=== PATIENT | male | born 1980 | race African-American/Black ===

== ENCOUNTER 2018-01-07 14:06 | Inpatient (IN) | payer MEDICARE ==
[2018-01-07] VITALS (38 sets, daily range): BP systolic 122–186; BP diastolic 72–121; BMI 27.1
[~2018-01-07] VITALS: Ht 180.3 cm; Wt 78.0 kg
--- NOTE | ~2018-01-07 | MORECARE ---
CASE MANAGEMENT DISCHARGE SUMMARY PATIENT: DANIEL GRACE UNIT: [id number] ADM DATE: 01/07/18 AGE: 38 : 78 SEX: M ROOM/BED: D.1210 AUTHOR: LIANA PADRON PHYSICIAN: REFERRING PHYSICIAN: GEORGE LOCKHART MD DATE OF SERVICE: 01/11/18 Discharge Plan Patient Name: DANIEL GRACE Facility: [facility]:[place] : 1980 Planned Disposition: Home or Self Care Anticipated Discharge Date: 01/10/18 Discharge Date: 01/10/2018 Expected LOS: 3 Initial Reviewer: [id number] Initial Review Date: 01/10/2018 Generated: 01/11/18 2:08 pm Comments DCP- Discharge Planning Updated by [email or web address]: Sherine Mills on 01/10/18 1:[address] Patient Name: DANIEL GRACE Admission Status: Elective Accout number: [id number] Admission Date: 01-07-2018 : 1980 Admission Diagnosis: Attending: GEORGE LOCKHART Current LOS: 3 Anticipated DC Date: 01-10-2018 Planned Disposition: Home or Self Care Primary Insurance: MEDICARE A & B Discharge Planning Comments: CM MET WITH PATIENT VARGAS PRIOR TO DISCHARGE PATIENT DEINES ANY NEEDS. IMM EXPLAINED AND SERVED @ 1440 CM WILL CONTINUE TO FOLLOW AND ASSIST NEEDED WITH DISCHARGE PLANNING / NEEDS. Supervisor Throwing Department: Sherine Mills DCPIA - Discharge Planning Initial Assessment Updated by [email or web address]: Sherine Mills on 01/10/18 2:54 pm * Is the patient Alert and Oriented? Yes * How many steps to enter\exit or inside your home? Coverage Notice Reviewer: [email or web address] - Sherine Mills Notice Issued Date-Time: 01/10/2018 14:40 Notice Type: IM Discharge Notice Notice Delivered To: Patient Relationship to Patient: Self Fire Prevention Specialist Name: Delivery Method: HAND - Hand Delivered Lizzy Days: Prior Verbal Notification: Recipient Understood Notice: Yes Recipient Signature: Yes Med Rec Note Co-signed by Attending: Coverage Notice Comment: Last DP export: 01/10/18 1:58 Patient Name: DANIEL GRACE Page 67341 at 1308 All edits/amendments must be made on the electronic document DICTATION DATE: 01/11/181307 SORTER UPHOLSTERY PARTS: CHRISTIAN 01/11/18 1308 RPT#: [id number] DC DATE:01/10/18 STATUS: DIS IN [facility] [address] [place] [address] END OF REPORT
--- NOTE | ~2018-01-07 | MORECARE ---
CASE MANAGEMENT DISCHARGE SUMMARY PATIENT: DANIEL GRACE UNIT: [id number] ADM DATE: 01/07/18 AGE: 37 : 78 SEX: M ROOM/BED: D.1210 AUTHOR: LIANA PADRON PHYSICIAN: REFERRING PHYSICIAN: GEORGE LOCKHART MD DATE OF SERVICE: 01/10/18 Discharge Plan Patient Name: DANIEL GRACE Facility: [facility]:[place] : 1980 Planned Disposition: Home or Self Care Anticipated Discharge Date: 01/10/18 Discharge Date: Expected LOS: 3 Initial Reviewer: [email or web address] Initial Review Date: 01/10/2018 Generated: 01/10/18 3:58 pm Comments DCP- Discharge Planning Updated by [email or web address]: Sherine Mills on 01/10/18 1:[address] Patient Name: DANIEL GRACE Admission Status: Elective Accout number: [id number] Admission Date: 01-07-2018 : 1980 Admission Diagnosis: Attending: GEORGE LOCKHART Current LOS: 3 Anticipated DC Date: 01-10-2018 Planned Disposition: Home or Self Care Primary Insurance: MEDICARE A & B Discharge Planning Comments: CM MET WITH PATIENT VARGAS PRIOR TO DISCHARGE PATIENT DEINES ANY NEEDS. IMM EXPLAINED AND SERVED @ 1440 CM WILL CONTINUE TO FOLLOW AND ASSIST NEEDED WITH DISCHARGE PLANNING / NEEDS. Student Union Consultant: Sherine Mills DCPIA - Discharge Planning Initial Assessment Updated by [email or web address]: Sherine Mills on 01/10/18 2:54 pm * Is the patient Alert and Oriented? Yes * How many steps to enter\exit or inside your home? Coverage Notice Reviewer: [email or web address] - Sherine Mills Notice Issued Date-Time: 01/10/2018 14:40 Notice Type: IM Discharge Notice Notice Delivered To: Patient Relationship to Patient: Self Throw Out Clerk Name: Delivery Method: HAND - Hand Delivered Lizzy Days: Prior Verbal Notification: Recipient Understood Notice: Yes Recipient Signature: Yes Med Rec Note Co-signed by Attending: Coverage Notice Comment: Patient Name: DANIEL GRACE Page 13441 at 1458 All edits/amendments must be made on the electronic document DICTATION DATE: 01/10/181457 CORRECTIONAL OFFICER LIEUTENANT: CHRISTIAN 01/10/181457 RPT#: [id number] DC DATE: STATUS: ADM IN [facility] [address] [place] [address] END OF REPORT
--- NOTE | ~2018-01-07 | DS ---
PATIENT:DANIEL GRACE :[birth year] MEDICAL RECORD: [id number] DISCHARGE SUMMARY ADMISSION DATE: 01/07/18 DISCHARGE DATE: 01/10/18 HISTORY OF PRESENT ILLNESS: Mr. Grace is a 37-year-old black male with end-stage renal disease due to hypertension and chronic drug abuse and poor dialysis and medication compliance. He has severe accelerated hypertension when he does not take his medicines, recurrent admissions for accelerated hypertension. In the dialysis unit, on Wednesday prior to admission with accelerated hypertension after not having taken his medications, apparently his systolic pressure was 270, transferred to the [facility] and then transferred here. HOSPITAL COURSE: The patient's drug screen is pending. He underwent emergent dialysis without difficulty. His home meds were resumed as well as his antihypertensives and his blood pressure came promptly under control at the time of discharge, he was back to baseline with an IJ catheter that will be removed. Dialysis fistula is intact. DISCHARGE DIAGNOSES: 1. Accelerated hypertension due to medication noncompliance. 2. End-stage renal disease with dialysis noncompliance. 3. Severe hypertension. 4. End-stage renal disease. 5. Chronic drug abuse. 6. Poor compliance. 7. Chronic anemia. PLAN: The patient will be discharged today. We will remove his left IJ catheter. He will be discharged after dialysis. He will be in [facility] on Wednesday. He will continue his renal diet, ambulation as tolerated. DISCHARGE MEDICATIONS: Will be nifedipine 90 mg daily, Renvela 800 t.i.d., clonidine 0.2 q.8 hours. He will be on labetalol 200 b.i.d., lisinopril 20 b.i.d., amlodipine 10 mg daily. TRANSINT:[id number] Voice Confirmation ID: [id number] DOCUMENT ID: [id number] CC: [facility] ALE ESCAMILLA MD at 0631 CC: [id number] DICTATION DATE: 01/10/18622 JUKE BOX SERVICER: 01/10/18 1000 DIS IN 01/10/18 [facility] [address] [place] [address]
[~2018-01-07 14:06] MED LIST: ADALAT CC90 MG PO; CATAPRES0.2 MG PO; COREG25 MG PO; METOPROLOL TAR100 M1 PO; NORVASC10 MG PO; PRINIVIL20 MG; PRINIVIL20 MG PO; PROAIR HFA8.5 GM INH; RENVELA800 MG PO
[2018-01-08] VITALS (63 sets, daily range): BP systolic 124–164; BP diastolic 75–105; Ht 180.3 cm; Wt 78.0 kg
[2018-01-08 03:16] LABS: BASOPHILS 0.3 % (0-2); EOSINOPHILS 0.1 % (0-7); HEMATOCRIT 27.7 % (42.0-54.0); HEMOGLOBIN 8.9 g/dL (13.5-17.5); IMMATURE GRANULOCYTES 0.1 % (0-5); LYMPHOCYTES 7.2 % (15-50); MCH 29.9 pg (26.0-34.0); MCHC 32.1 g/dL (31.0-37.0); MEAN PLATELET VOLUME 11.4 fL (7.4-10.4); MONOCYTES 6.7 % (2-11); NEUTROPHILS 85.6 % (40-80); RBC 2.98 10x6/uL (4.20-6.10); RDW 14.3 % (11.5-14.5); WBC 7.2 10x3/uL (4.8-10.8)
[2018-01-08 03:18] LABS: PLATELET COUNT 140 10x3/uL (130-400)
[2018-01-08 03:28] LABS: ANION GAP 18.5 mmol/L (8-16); CALCIUM 8.5 mg/dL (8.5-10.1); CARBON DIOXIDE 24.1 mmol/L (21.0-32.0); CREATININE - SERUM 18.6 mg/dL (0.6-1.3); POTASSIUM - SERUM 4.6 mmol/L (3.5-5.1)
[2018-01-09] VITALS (16 sets, daily range): BP systolic 131–159; BP diastolic 87–108
[2018-01-09 03:41] LABS: BASOPHILS 0.4 % (0-2); EOSINOPHILS 1.7 % (0-7); HEMATOCRIT 28.2 % (42.0-54.0); HEMOGLOBIN 9.1 g/dL (13.5-17.5); LYMPHOCYTES 15.3 % (15-50); MCH 30.2 pg (26.0-34.0); MCHC 32.3 g/dL (31.0-37.0); MCV 93.7 fL (80.0-100.0); MEAN PLATELET VOLUME 11.4 fL (7.4-10.4); NEUTROPHILS 73.6 % (40-80); PLATELET COUNT 147 10x3/uL (130-400); RBC 3.01 10x6/uL (4.20-6.10); RDW 14.2 % (11.5-14.5); WBC 5.4 10x3/uL (4.8-10.8)
[2018-01-09 03:43] LABS: ANION GAP 16.3 mmol/L (8-16); CALCIUM 8.5 mg/dL (8.5-10.1); CARBON DIOXIDE 27.7 mmol/L (21.0-32.0)
[2018-01-09 03:44] LABS: CREATININE - SERUM 13.4 mg/dL (0.6-1.3)
[2018-01-10 03:57] VITALS: BP 132/85
[2018-01-10 06:19] LABS: EOSINOPHILS 4.1 % (0-7); HEMOGLOBIN 9.4 g/dL (13.5-17.5); IMMATURE GRANULOCYTES 0.2 % (0-5); MCH 30.2 pg (26.0-34.0); MCHC 32.4 g/dL (31.0-37.0); MCV 93.2 fL (80.0-100.0); MEAN PLATELET VOLUME 12.5 fL (7.4-10.4); MONOCYTES 11.6 % (2-11); NEUTROPHILS 63.1 % (40-80); RBC 3.11 10x6/uL (4.20-6.10); RDW 14.1 % (11.5-14.5); WBC 4.1 10x3/uL (4.8-10.8)
[2018-01-10 06:21] LABS: PLATELET COUNT 194 10x3/uL (130-400)
[2018-01-10 06:34] LABS: ANION GAP 16.9 mmol/L (8-16); CALCIUM 7.9 mg/dL (8.5-10.1); CARBON DIOXIDE 26.3 mmol/L (21.0-32.0); CREATININE - SERUM 15.7 mg/dL (0.6-1.3); POTASSIUM - SERUM 4.2 mmol/L (3.5-5.1)
[2018-01-10 07:32] VITALS: BP 152/98
[2018-01-10] MEDS ORDERED: NORMODYNE / TR200 MG PO (10:12)
== END 2018-01-10 15:15 | disposition home or self-care (01) | DRG 304 ==
LOC: D.M2 14:06 → D.M3 14:50 → D.ICU 14:50 → D.M3 01-09 18:14
PROVIDERS: Internal Medicine Nephrology
PROC: 5A1D70Z Performance of Urinary Filtration, Intermittent, Less than 6 Hours Per Day (ICD-10-PCS; principal; 2018-01-07)
DX: I16.9 Hypertensive crisis, unspecified (principal); N18.6 End stage renal disease; I12.0 Hypertensive chronic kidney disease with stage 5 chronic kidney disease or end stage renal disease; Z99.2 Dependence on renal dialysis; Z91.15 Patient's noncompliance with renal dialysis; F14.10 Cocaine abuse, uncomplicated; J44.9 Chronic obstructive pulmonary disease, unspecified; D64.9 Anemia, unspecified; Z91.14 Patient's other noncompliance with medication regimen; F32.9 Major depressive disorder, single episode, unspecified; Z72.0 Tobacco use

== ENCOUNTER 2018-01-21 12:50 | Inpatient (IN) | payer MEDICARE ==
[~2018-01-21] VITALS: Ht 180.3 cm; Wt 81.7 kg
[2018-01-21] VITALS (28 sets, daily range): BP systolic 138–233; BP diastolic 78–147; BMI 26.0
--- NOTE | ~2018-01-21 | MORECARE ---
CASE MANAGEMENT DISCHARGE SUMMARY PATIENT: DANIEL GRACE UNIT: [id number] ADM DATE: 01/21/18 AGE: 38 : 78 SEX: M ROOM/BED: D.2134 AUTHOR: LIANA PADRON PHYSICIAN: REFERRING PHYSICIAN: LUBA HSIHE MD DATE OF SERVICE: 01/24/18 Discharge Plan Patient Name: DANIEL GRACE Facility: [facility]:[place] : 1980 Planned Disposition: Home Anticipated Discharge Date: 01/23/18 Discharge Date: 01/23/2018 Expected LOS: 2 Initial Reviewer: [email or web address] Initial Review Date: 01/24/2018 Generated: 01/24/18 9:18 am Patient Name: DANIEL GRACE Page 81944 at 0818 All edits/amendments must be made on the electronic document DICTATION DATE: 01/24/18816 CREDIT VERIFICATION CLERK: CHRISTIAN 01/24/18816 RPT#: [id number] DC DATE:01/23/18 STATUS: DIS IN [facility] [address] [place] [address] END OF REPORT
[~2018-01-21 12:50] MED LIST changes: +NORMODYNE / TR200 MG PO
[2018-01-21 13:17] LABS: BASOPHILS 0.1 % (0-2); EOSINOPHILS 2.1 % (0-7); HEMATOCRIT 27.2 % (42.0-54.0); HEMOGLOBIN 8.6 g/dL (13.5-17.5); IMMATURE GRANULOCYTES 0.1 % (0-5); LYMPHOCYTES 7.3 % (15-50); MCH 30.2 pg (26.0-34.0); MCHC 31.6 g/dL (31.0-37.0); MCV 95.4 fL (80.0-100.0); MEAN PLATELET VOLUME 11.1 fL (7.4-10.4); MONOCYTES 3.4 % (2-11); RBC 2.85 10x6/uL (4.20-6.10); RDW 14.3 % (11.5-14.5); WBC 7.7 10x3/uL (4.8-10.8)
[2018-01-21 13:25] LABS: PLATELET COUNT 241 10x3/uL (130-400)
[2018-01-21 13:38] LABS: ALBUMIN 3.2 g/dL (3.4-5.0); ANION GAP 21.8 mmol/L (8-16); BILIRUBIN - TOTAL 0.86 mg/dL (0.2-1.3); CALCIUM 8.2 mg/dL (8.5-10.1); CARBON DIOXIDE 21.6 mmol/L (21.0-32.0); CREATININE - SERUM 16.4 mg/dL (0.6-1.3); POTASSIUM - SERUM 5.4 mmol/L (3.5-5.1); PROTEIN - SERUM 7.2 g/dL (6.4-8.2)
[2018-01-21 13:54] LABS: MAGNESIUM - SERUM 2.8 mg/dL (1.8-2.4); THYROID STIMULATING HORMONE 1.26 uIU/mL (0.36-3.74)
[2018-01-21 13:59] LABS: TROPONIN-I 0.116 ng/mL (0.000-0.060)
[2018-01-22] VITALS (13 sets, daily range): BP systolic 131–160; BP diastolic 80–102; Ht 180.3 cm; Wt 81.7 kg
[2018-01-22 03:47] LABS: BASOPHILS 0.4 % (0-2); EOSINOPHILS 3.5 % (0-7); HEMOGLOBIN 8.2 g/dL (13.5-17.5); LYMPHOCYTES 10.5 % (15-50); MCH 29.9 pg (26.0-34.0); MCHC 31.5 g/dL (31.0-37.0); MCV 94.9 fL (80.0-100.0); MEAN PLATELET VOLUME 10.5 fL (7.4-10.4); MONOCYTES 9.9 % (2-11); NEUTROPHILS 75.7 % (40-80); PLATELET COUNT 214 10x3/uL (130-400); RBC 2.74 10x6/uL (4.20-6.10); RDW 14.3 % (11.5-14.5)
[2018-01-22 03:57] LABS: WBC 5.2 10x3/uL (4.8-10.8)
[2018-01-22 04:01] LABS: ANION GAP 15.5 mmol/L (8-16); CALCIUM 7.9 mg/dL (8.5-10.1); CARBON DIOXIDE 25.6 mmol/L (21.0-32.0); POTASSIUM - SERUM 5.1 mmol/L (3.5-5.1)
[2018-01-23 01:15] VITALS: BP 122/75
[2018-01-23 04:30] VITALS: BP 142/88
[2018-01-23 08:26] VITALS: BP 136/81
[2018-01-23] MEDS ORDERED: ADALAT CC90 MG PO (09:48)
[2018-01-23] MEDS ORDERED: NORMODYNE / TR200 MG PO (09:48)
[2018-01-23] MEDS ORDERED: CATAPRES0.2 MG PO (09:48)
[2018-01-23] MEDS ORDERED: NORVASC10 MG PO (09:48)
[2018-01-23] MEDS ORDERED: PRINIVIL20 MG PO (09:48)
[2018-01-23] MEDS ORDERED: HYDRALAZINE HCL25 MG PO (09:50)
== END 2018-01-23 13:33 | disposition home or self-care (01) | DRG 640 ==
LOC: D.ER 12:50 → D.ICU 14:49 → D.M2 01-22 13:48
PROVIDERS: Emergency Medicine
PROC: 5A1D70Z Performance of Urinary Filtration, Intermittent, Less than 6 Hours Per Day (ICD-10-PCS; principal; 2018-01-21)
DX: E87.70 Fluid overload, unspecified (principal); N18.6 End stage renal disease; I12.0 Hypertensive chronic kidney disease with stage 5 chronic kidney disease or end stage renal disease; I16.1 Hypertensive emergency; E87.5 Hyperkalemia; Z99.2 Dependence on renal dialysis; Z91.15 Patient's noncompliance with renal dialysis; J44.9 Chronic obstructive pulmonary disease, unspecified; F32.9 Major depressive disorder, single episode, unspecified; D63.1 Anemia in chronic kidney disease; Z72.0 Tobacco use

== ENCOUNTER 2018-02-02 00:18 | Inpatient (IN) | payer MEDICARE ==
[2018-02-02] VITALS (74 sets, daily range): BP systolic 127–237; BP diastolic 54–139; Ht 180.3 cm; Wt 88.2 kg
[~2018-02-02] VITALS: Ht 180.3 cm; Wt 88.2 kg
--- NOTE | ~2018-02-02 | MORECARE ---
CASE MANAGEMENT DISCHARGE SUMMARY PATIENT: DANIEL GRACE UNIT: [id number] ADM DATE: 02/02/18 AGE: 38 : 78 SEX: M ROOM/BED: D.08 AUTHOR: VITO,DOC PHYSICIAN: REFERRING PHYSICIAN: GEORGE LOCKHART MD DATE OF SERVICE: 02/03/18 Discharge Plan Patient Name: DANIEL GRACE Facility: [facility]:[place] : 1980 Planned Disposition: Home Anticipated Discharge Date: Discharge Date: Expected LOS: Initial Reviewer: [email or web address] Initial Review Date: 02/03/2018 Generated: 02/03/18 6:17 pm Comments DCP- Discharge Planning Updated by [email or web address]: Sherine Mills on 02/03/18 4:[address] Patient Name: DANIEL GRACE Admission Status: ER Accout number: [id number] Admission Date: 02-02-2018 : 1980 Admission Diagnosis: Attending: GEORGE LOCKHART Current LOS: 1 Anticipated DC Date: Planned Disposition: Home Primary Insurance: MEDICARE A & B Discharge Planning Comments: CM MET WITH PATIENT AT BEDSIDE. PATIENT STATED HE PLANS TO RETURN TO HIS HOME AFTER DISCHARGE WITH HIS FAMILY. HE STATES THAT HE CAN'T GET HIS MEDICATIONS OR TRANSPORTATION TO DIALYSIS SINCE HIS MEDICAID DROPPED. HE STATED THAT THEY TOLD HIM THAT HE MADE TO [employer] MONE[employer] FOR MEDICAID. HE STATES HIS DISABILITY CHECK IS 700.00 MONTHLY. HE ALSO STATES THAT HE WORKS AT [employer] TO SUPPLEMENT HIS INCOME. CM SPOKE WITH SAÚL DENNEY WITH [employer] TO SEE IF SHE HAD ANY SUGGESTIONS. SAÚL LOOKED AT HIS RECORDS AND STATED WITH HIS INCOME AT [employer] PUT HIM OVER THE LIMIT FOR MEDICAID. CM WILL CONTACT MUD JACK NOZZLEMAN AT DIALYSIS TO SEE IF SHE HAS ANY RADIO TALK SHOW HOST PROGRAMS AVAILABLE FOR PATIENTS MEDICATIONS AND TRANSPORTATION. CM WILL CONTINUE TO FOLLOW AND ASSIST NEEDED WITH DISCHARGE PLANNING / NEEDS. Act Tutor: Sherine Mills DCPIA - Discharge Planning Initial Assessment Updated by [email or web address]: Sherine Mills on 02/03/18 4:56 pm * Is the patient Alert and Oriented? Yes * How many steps to enter\exit or inside your home? * PCP DR. ESCAMILLA * Pharmacy [facility] * Preadmission Environment Home with Family * ADLs Independent * Equipment None * List name and contact numbers for known caregivers / representatives who currently or will assist patient after discharge: ARELY BRAVO - [phone] OR [phone] * Verbal permission to speak to the caregivers and representatives has been obtained from the patient. N/A * Community resources currently utilized None * Additional services required to return to the preadmission environment? No * Can the patient safely return to the preadmission environment? Yes * Has this patient been hospitalized within the prior 30 days at any hospital? No Last DP export: 02/03/18 4:01 Patient Name: DANIEL GRACE Page 67755 at 1717 All edits/amendments must be made on the electronic document DICTATION DATE: 02/03/181716 AIRBORNE WE[employer] TECHNICAL MANAGER: CHRISTIAN 02/03/181716 RPT#: [id number] DC DATE: STATUS: ADM IN [facility] [address] [place] [address] END OF REPORT
--- NOTE | ~2018-02-02 | MORECARE ---
CASE MANAGEMENT DISCHARGE SUMMARY PATIENT: DANIEL GRACE UNIT: [id number] ADM DATE: 02/02/18 AGE: 38 : 78 SEX: M ROOM/BED: D.2718 AUTHOR: VITO,DOC PHYSICIAN: REFERRING PHYSICIAN: GEORGE LOCKHART MD DATE OF SERVICE: 02/04/18 Discharge Plan Patient Name: DANIEL GRACE Facility: [facility]:[place] : 1980 Planned Disposition: Home Anticipated Discharge Date: 02/04/18 Discharge Date: 02/04/2018 Expected LOS: 2 Initial Reviewer: [email or web address] Initial Review Date: 02/03/2018 Generated: 02/04/18 6:30 pm Comments DCP- Discharge Planning Updated by [email or web address]: Jovani Nieves on 02/04/18 4:[address] Patient Name: DANIEL GRACE Encounter No: [id number] : 1980 Primary Insurance: MEDICARE A & B Anticipated DC Date: 02-04-2018 Planned Disposition: Home DCP follow-up note: CM MET WITH PT IN ROOM TO DISCUSS DISCHARGE NEEDS AND PLANNING. CM DISCUSSED AVAILABILITY OF HOME HEALTH, REHAB SERVICES AND MEDICAL EQUIPMENT. PT DENIES DISCHARGE NEEDS. PT REPORTS A [employer] FRIEND WILL TRANSPORT HOME AT DISCHARGE. IMPORTANT MESSAGE FROM MEDICARE PROVIDED AND EXPLAINED. CM DISCUSSED PERSONAL SUPPORT SYSTEM AND MEDICATION ASSISTANCE THROUGH [employer]. PT REPORTS HE BELIEVES HIS [employer]ISM WILL ASSIST WITH ANY NEEDED MEDICATIONS, PT IS USING THE [employer] $4 LIST MUCH POSSIBLE. PT RECEIVES $700 MONTH DISABILITY PAYMENT. 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 PT USUALLY ASKS FOR FRIENDS TO HELP GET HIM TO DIALYSIS. PT HAS CHECKED WITH DEPARTMENT OF HUMAN SERVICES TO REINSTATE MEDICAID, BUT HE NEEDS TO FILL OUT "SOME FORM" AND HAS NOT DONE SO. CM ENCOURAGED PT TO FOLLOW UP WITH DEPARTMENT OF HUMAN SERVICES IN [facility] AND TO ALSO ASK WHAT THE INCOME LIMIT IS AN ADJUST HIS HOURS AT [place] IF NEEDED, SO THAT HE CAN GET MEDICAID AGAIN PT IS RELYING ON MEDICAID FOR MEDICAL TRANSPORT AND MEDICATIONS, BOTH OF WHICH ARE REQUIRED TO KEEP PT ALIVE. CM REASONED WITH PT THAT IF PT DOES NOT TAKE CARE OF HIMSELF, HE IS NOT GOING TO BE ABLE TO TAKE CARE OF HIS FAMILY. PT REPORTS HE WILL FOLLOW UP WITH DEPARTMENT OF HUMAN SERVICES, DENIES FURTHER NEEDS. STEAM FRAME OPERATOR NURSE NOTIFIED. Jovani Nieves DCP- Discharge Planning Updated by [email or web address]: Sherine Mills on 02/03/18 4:[address] Patient Name: DANIEL GRACE Admission Status: ER Accout number: [id number] Admission Date: 02-02-2018 : 1980 Admission Diagnosis: Attending: GEORGE LOCKHART Current LOS: 1 Anticipated DC Date: Planned Disposition: Home Primary Insurance: MEDICARE A & B Discharge Planning Comments: CM MET WITH PATIENT AT BEDSIDE. PATIENT STATED HE PLANS TO RETURN TO HIS HOME AFTER DISCHARGE WITH HIS FAMILY. HE STATES THAT HE CAN'T GET HIS MEDICATIONS OR TRANSPORTATION TO DIALYSIS SINCE HIS MEDICAID DROPPED. HE STATED THAT THEY TOLD HIM THAT HE MADE TO [employer]ONE[employer] FOR MEDICAID. HE STATES HIS DISABILITY CHECK IS 700.00 MONTHLY. HE ALSO STATES THAT HE WORKS AT [employer] TO SUPPLEMENT HIS INCOME. CM SPOKE WITH SAÚL DENNEY WITH [employer] TO SEE IF SHE HAD ANY SUGGESTIONS. SAÚL LOOKED AT HIS RECORDS AND STATED WITH HIS INCOME AT [employer] PUT HIM OVER THE LIMIT FOR MEDICAID. CM WILL CONTACT FURNACE MAINTENANCE AT DIALYSIS TO SEE IF SHE HAS ANY MEDICAL COLLECTIONS SPECIALIST PROGRAMS AVAILABLE FOR PATIENTS MEDICATIONS AND TRANSPORTATION. CM WILL CONTINUE TO FOLLOW AND ASSIST NEEDED WITH DISCHARGE PLANNING / NEEDS. Home Care Specialist: Sherine Mills DCPIA - Discharge Planning Initial Assessment Updated by [email or web address]: Sherine Smithr on 02/03/18 4:56 pm * Is the patient Alert and Oriented? Yes * How many steps to enter\\exit or inside your home? * PCP DR. ESCAMILLA * Pharmacy [facility] * Preadmission Environment Home with Family * ADLs Independent * Equipment None * List name and contact numbers for known caregivers / representatives who currently or will assist patient after discharge: ARELY BRAVO - [phone] OR [phone] * Verbal permission to speak to the caregivers and representatives has been obtained from the patient. N/A * Community resources currently utilized None * Additional services required to return to the preadmission environment? No * Can the patient safely return to the preadmission environment? Yes * Has this patient been hospitalized within the prior 30 days at any hospital? No Coverage Notice Reviewer: [id number] - Jovani Nieves Notice Issued Date-Time: 02/04/2018 8:50 Notice Type: IM Discharge Notice Notice Delivered To: Patient Relationship to Patient: Welding Machine Operator Resistance Name: Delivery Method: HAND - Hand Delivered Lizzy Days: Prior Verbal Notification: Recipient Understood Notice: Yes Recipient Signature: Yes Med Rec Note Co-signed by Attending: Coverage Notice Comment: Last DP export: 02/04/18 4:22 Patient Name: DANIEL GRACE Page 98805 at 1730 All edits/amendments must be made on the electronic document DICTATION DATE: 02/04/181729 HOG SCRAPER: CHRISTIAN 02/04/181729 RPT#: [id number] DC DATE:02/04/18 STATUS: DIS IN [facility] [address] [place] [address] END OF REPORT
--- NOTE | ~2018-02-02 | MORECARE ---
CASE MANAGEMENT DISCHARGE SUMMARY PATIENT: DANIEL GRACE UNIT: [id number] ADM DATE: 02/02/18 AGE: 38 : [birth year] SEX: M [facility] AUTHOR: LIANA PADRON PHYSICIAN: REFERRING PHYSICIAN: GEORGE LOCKHART MD DATE OF SERVICE: 02/03/18 Discharge Plan Patient Name: DANIEL GRACE [facility] : 1980 Planned Disposition: Home Anticipated Discharge Date: Discharge Date: Expected LOS: Initial Reviewer: [email or web address] Initial Review Date: 02/03/2018 Generated: 02/03/18 6:01 pm DCPIA - Discharge Planning Initial Assessment Updated by [email or web address]: Sherine Mills on 02/03/18 4:56 pm * Is the patient Alert and Oriented? Yes * How many steps to enter\exit or inside your home? * PCP DR. ESCAMILLA * Pharmacy [facility] * Preadmission Environment Home with Family * ADLs Independent * Equipment None * List name and contact numbers for known caregivers / representatives who currently or will assist patient after discharge: ARELY BRAVO [phone] OR [phone] * Verbal permission to speak to the caregivers and representatives has been obtained from the patient. N/A * Community resources currently utilized None * Additional services required to return to the preadmission environment? No * Can the patient safely return to the preadmission environment? Yes * Has this patient been hospitalized within the prior 30 days at any hospital? No Last DP export: 02/03/18 3:52 Patient Name: DANIEL GRACE Page [phone] at 1701 All edits/amendments must be made on the electronic document DICTATION DATE: 02/03/181699 UPSTREAM BIOMANUFACTURING TECHNICIAN: CHRISTIAN 02/03/181699 RPT#: [id number] DC DATE: STATUS: ADM IN [facility] [address] [place] [address] END OF REPORT
--- NOTE | ~2018-02-02 | MORECARE ---
CASE MANAGEMENT DISCHARGE SUMMARY PATIENT: DANIEL GRACE UNIT: [id number] ADM DATE: 02/02/18 AGE: 38 : [birth year] SEX: M ROOM/BED: D.4083 AUTHOR: LIANA PADRON PHYSICIAN: REFERRING PHYSICIAN: GEORGE LOCKHART MD DATE OF SERVICE: 02/04/18 Discharge Plan Patient Name: DANIEL GRACE Facility: [facility]:[place] : 1980 Planned Disposition: Home Anticipated Discharge Date: 02/04/18 Discharge Date: 02/04/2018 Expected LOS: 2 Initial Reviewer: [email or web address] Initial Review Date: 02/03/2018 Generated: 02/04/18 6:22 pm Comments DCP- Discharge Planning Updated by [email or web address]: Sherine Mills on 02/03/18 4:[address] Patient Name: DANIEL GRACE Admission Status: ER Accout number: [id number] Admission Date: 02-02-2018 : 1980 Admission Diagnosis: Attending: GEORGE LOCKHART Current LOS: 1 Anticipated DC Date: Planned Disposition: Home Primary Insurance: MEDICARE A & B Discharge Planning Comments: CM MET WITH PATIENT AT BEDSIDE. PATIENT STATED HE PLANS TO RETURN TO HIS HOME AFTER DISCHARGE WITH HIS FAMILY. HE STATES THAT HE CAN'T GET HIS MEDICATIONS OR TRANSPORTATION TO DIALYSIS SINCE HIS MEDICAID DROPPED. HE STATED THAT THEY TOLD HIM THAT HE MADE TO [employer]ONEY FOR MEDICAID. HE STATES HIS DISABILITY CHECK IS 700.00 MONTHLY. HE ALSO STATES THAT HE WORKS AT [employer] TO SUPPLEMENT HIS INCOME. CM SPOKE WITH SAÚL DENNEY WITH [employer] TO SEE IF SHE HAD ANY SUGGESTIONS. SAÚL LOOKED AT HIS RECORDS AND STATED WITH HIS INCOME AT [employer] PUT HIM OVER THE LIMIT FOR MEDICAID. CM WILL CONTACT BULK CLERK AT DIALYSIS TO SEE IF SHE HAS ANY LAPELER PROGRAMS AVAILABLE FOR PATIENTS MEDICATIONS AND TRANSPORTATION. CM WILL CONTINUE TO FOLLOW AND ASSIST NEEDED WITH DISCHARGE PLANNING / NEEDS. Senior Commissary Agent: Sherine Mills DCPIA - Discharge Planning Initial Assessment Updated by [email or web address]: Sherine Mills on 02/03/18 4:56 pm * Is the patient Alert and Oriented? Yes * How many steps to enter\exit or inside your home? * PCP DR. ESCAMILLA * Pharmacy [facility] * Preadmission Environment Home with Family * ADLs Independent * Equipment None * List name and contact numbers for known caregivers / representatives who currently or will assist patient after discharge: ARELY BRAVO [phone] OR [phone] * Verbal permission to speak to the caregivers and representatives has been obtained from the patient. N/A * Community resources currently utilized None * Additional services required to return to the preadmission environment? No * Can the patient safely return to the preadmission environment? Yes * Has this patient been hospitalized within the prior 30 days at any hospital? No Last DP export: 02/03/18 4:17 Patient Name: DANIEL GRACE Page [phone] at 1722 All edits/amendments must be made on the electronic document DICTATION DATE: 02/04/181720 STOCK RECEIVER: CHRISTIAN 02/04/181720 RPT#: [id number] DC DATE:02/04/18 STATUS: DIS IN [facility] [address] [place] [address] END OF REPORT
--- NOTE | ~2018-02-02 | MORECARE ---
CASE MANAGEMENT DISCHARGE SUMMARY PATIENT: DANIEL GRACE UNIT: [id number] ADM DATE: 02/02/18 AGE: 38 : [birth year] SEX: M [facility] AUTHOR: LIANA PADRON PHYSICIAN: REFERRING PHYSICIAN: GEORGE LOCKHART MD DATE OF SERVICE: 02/03/18 Discharge Plan Patient Name: DANIEL GRACE Facility: [facility]:[place] : 1980 Planned Disposition: Home Anticipated Discharge Date: Discharge Date: Expected LOS: Initial Reviewer: [email or web address] Initial Review Date: 02/03/2018 Generated: 02/03/18 5:52 pm Patient Name: DANIEL GRACE Page 70446 at 1652 All edits/amendments must be made on the electronic document DICTATION DATE: 02/03/181651 ELECTRIC APPLIANCE INSTALLER: CHRISTIAN 02/03/181651 RPT#: [id number] DC DATE: STATUS: ADM IN [facility] [address] [place] [address] END OF REPORT
[~2018-02-02 00:18] MED LIST changes: +HYDRALAZINE HCL25 MG PO
[2018-02-02] MEDS ORDERED: ZESTRIL20 MG PO (12:13)
[2018-02-03] VITALS (40 sets, daily range): BP systolic 130–170; BP diastolic 77–107
[2018-02-03 06:47] LABS: BASOPHILS 0.3 % (0-2); EOSINOPHILS 1.5 % (0-7); HEMATOCRIT 25.3 % (42.0-54.0); HEMOGLOBIN 7.9 g/dL (13.5-17.5); IMMATURE GRANULOCYTES 0.2 % (0-5); LYMPHOCYTES 14.1 % (15-50); MCHC 31.2 g/dL (31.0-37.0); MCV 96.2 fL (80.0-100.0); MEAN PLATELET VOLUME 11.5 fL (7.4-10.4); MONOCYTES 10.3 % (2-11); NEUTROPHILS 73.6 % (40-80); PLATELET COUNT 232 10x3/uL (130-400); RBC 2.63 10x6/uL (4.20-6.10); RDW 15.5 % (11.5-14.5); WBC 5.8 10x3/uL (4.8-10.8)
[2018-02-03 06:48] LABS: ALBUMIN 2.8 g/dL (3.4-5.0); BILIRUBIN - TOTAL 0.46 mg/dL (0.2-1.3); CALCIUM 8.2 mg/dL (8.5-10.1); CARBON DIOXIDE 27.3 mmol/L (21.0-32.0); CREATININE - SERUM 13.7 mg/dL (0.6-1.3); POTASSIUM - SERUM 5.3 mmol/L (3.5-5.1)
[2018-02-03 08:49] LABS: % SATURATION 22 % (15-55); IRON 44 ug/dl (35-150); TOTAL IRON BIND CAPACITY 198 ug/dl (260-445); UNSAT IRON BIND CAPACITY 154 ug/dl (150-375)
[2018-02-04 04:00] VITALS: BP 154/102
[2018-02-04 05:12] LABS: BASOPHILS 0.8 % (0-2); EOSINOPHILS 3.6 % (0-7); HEMATOCRIT 26.2 % (42.0-54.0); HEMOGLOBIN 8.3 g/dL (13.5-17.5); LYMPHOCYTES 26.5 % (15-50); MCH 30.6 pg (26.0-34.0); MCHC 31.7 g/dL (31.0-37.0); MCV 96.7 fL (80.0-100.0); MEAN PLATELET VOLUME 11.5 fL (7.4-10.4); MONOCYTES 9.2 % (2-11); NEUTROPHILS 59.9 % (40-80); PLATELET COUNT 199 10x3/uL (130-400); RBC 2.71 10x6/uL (4.20-6.10); RDW 15.1 % (11.5-14.5)
[2018-02-04 05:18] LABS: WBC 3.9 10x3/uL (4.8-10.8)
[2018-02-04 05:41] LABS: ALBUMIN 2.8 g/dL (3.4-5.0); ANION GAP 15.9 mmol/L (8-16); BILIRUBIN - TOTAL 0.38 mg/dL (0.2-1.3); CALCIUM 8.2 mg/dL (8.5-10.1); CARBON DIOXIDE 26.6 mmol/L (21.0-32.0); CREATININE - SERUM 15.5 mg/dL (0.6-1.3); POTASSIUM - SERUM 5.5 mmol/L (3.5-5.1); PROTEIN - SERUM 6.7 g/dL (6.4-8.2)
[2018-02-04 08:05] VITALS: BP 184/103
[2018-02-04 09:20] LABS: FOLATE (FOLIC ACID) - SERUM 9.7 ng/mL (>3.0)
[2018-02-04 14:21] VITALS: BP 179/107
== END 2018-02-04 15:46 | disposition home or self-care (01) | DRG 304 ==
LOC: D.ER 00:18 → D.M2 01:56 → D.CVICU 01:56 → D.M2 02-03 22:47
PROVIDERS: Internal Medicine Nephrology
PROC: 5A1D70Z Performance of Urinary Filtration, Intermittent, Less than 6 Hours Per Day (ICD-10-PCS; principal; 2018-02-02)
DX: I16.0 Hypertensive urgency (principal); N18.6 End stage renal disease; I12.0 Hypertensive chronic kidney disease with stage 5 chronic kidney disease or end stage renal disease; Z99.2 Dependence on renal dialysis; Z91.15 Patient's noncompliance with renal dialysis; D64.9 Anemia, unspecified; F32.9 Major depressive disorder, single episode, unspecified; J44.9 Chronic obstructive pulmonary disease, unspecified

== ENCOUNTER 2018-02-12 16:16 | Emergency (ER) | payer MEDICARE ==
[~2018-02-12] VITALS: Ht 180.3 cm; Wt 86.4 kg
[2018-02-12 11:20] VITALS: Ht 180.3 cm; Wt 86.4 kg
[2018-02-12 13:08] LABS: BASOPHILS 0.6 % (0-2); EOSINOPHILS 1.9 % (0-7); HEMOGLOBIN 7.6 g/dL (13.5-17.5); LYMPHOCYTES 11.9 % (15-50); MCHC 31.7 g/dL (31.0-37.0); MCV 94.9 fL (80.0-100.0); MEAN PLATELET VOLUME 10.5 fL (7.4-10.4); MONOCYTES 4.3 % (2-11); NEUTROPHILS 81.3 % (40-80); RBC 2.53 10x6/uL (4.20-6.10); RDW 15.2 % (11.5-14.5); WBC 4.7 10x3/uL (4.8-10.8)
[2018-02-12 13:10] LABS: PLATELET COUNT 270 10x3/uL (130-400)
[2018-02-12 13:49] LABS: ALBUMIN 3.3 g/dL (3.4-5.0); BILIRUBIN - TOTAL 0.49 mg/dL (0.2-1.3); CALCIUM 8.9 mg/dL (8.5-10.1); CARBON DIOXIDE 25.2 mmol/L (21.0-32.0)
[2018-02-12 13:51] LABS: CREATININE - SERUM 21.2 mg/dL (0.6-1.3)
[2018-02-12 13:52] LABS: ANION GAP 18.2 mmol/L (8-16); POTASSIUM - SERUM 6.4 mmol/L (3.5-5.1); TROPONIN-I 0.133 ng/mL (0.000-0.060)
[~2018-02-12 16:16] MED LIST changes: +ZESTRIL20 MG PO
[2018-02-12 19:00] VITALS: BP 182/112
== END 2018-02-12 19:00 | disposition home or self-care (01) ==
LOC: D.ER 16:16 → D.OPS 16:16 → EDSTATUS 16:17 → D.ER 19:00 → D.OPS 19:00 → EDSTATUS 02-21 13:54
PROVIDERS: Emergency Medicine
DX: I12.0 Hypertensive chronic kidney disease with stage 5 chronic kidney disease or end stage renal disease (principal); N18.6 End stage renal disease; Z99.2 Dependence on renal dialysis; Z91.15 Patient's noncompliance with renal dialysis; J81.1 Chronic pulmonary edema; J44.9 Chronic obstructive pulmonary disease, unspecified; F17.200 Nicotine dependence, unspecified, uncomplicated

== ENCOUNTER 2018-04-11 12:38 | Observation (INO) | payer MEDICARE ==
[~2018-04-11] VITALS: Ht 180.3 cm; Wt 83.6 kg
[2018-04-11 13:30] VITALS: BP 219/151
[2018-04-11 14:30] VITALS: BP 212/151
[2018-04-11 14:48] LABS: BASOPHILS 0.3 % (0-2); EOSINOPHILS 0.4 % (0-7); HEMATOCRIT 28.6 % (42.0-54.0); HEMOGLOBIN 8.9 g/dL (13.5-17.5); IMMATURE GRANULOCYTES 0.1 % (0-5); LYMPHOCYTES 8.3 % (15-50); MCH 29.1 pg (26.0-34.0); MCHC 31.1 g/dL (31.0-37.0); MCV 93.5 fL (80.0-100.0); MEAN PLATELET VOLUME 11.7 fL (7.4-10.4); MONOCYTES 5.5 % (2-11); NEUTROPHILS 85.4 % (40-80); PLATELET COUNT 236 10x3/uL (130-400); RBC 3.06 10x6/uL (4.20-6.10); RDW 15.6 % (11.5-14.5); WBC 8.9 10x3/uL (4.8-10.8)
[2018-04-11 15:16] LABS: ALBUMIN 3.6 g/dL (3.4-5.0); BILIRUBIN - TOTAL 0.95 mg/dL (0.2-1.3); CARBON DIOXIDE 20.9 mmol/L (21.0-32.0); CREATININE - SERUM 14.8 mg/dL (0.6-1.3); PROTEIN - SERUM 7.6 g/dL (6.4-8.2)
[2018-04-11 15:21] LABS: ANION GAP 24.3 mmol/L (8-16); POTASSIUM - SERUM 6.2 mmol/L (3.5-5.1)
[2018-04-11 15:30] VITALS: BP 221/147
[2018-04-11 16:30] VITALS: BP 211/136
[2018-04-11 17:30] VITALS: BP 210/133
--- NOTE | 2018-04-11 18:20 | NUR ---
1816-REPORT FROM SERAFIN IN THE ER. PATIENT IS IN DIALYSIS AT THIS TIME. SHE STATES THAT SHE IS GOING TO GIVE THE NOW DOSE OF LABETALOL AND APRESOLINE. RIGHT ARM RESEVRE WITH AVF.
--- NOTE | 2018-04-11 18:36 | NUR ---
PT TRANSPORTED TO DIALYSIS VIA W/C. PT REC' ADMISSION ROOM 1207. REPORT CALLED AND NOTIFIED DIALYSIS PT TO BE TRANSPORTED TO 1207 WHEN COMPLETED. CHART TAKEN TO DIALYSIS.
--- NOTE | 2018-04-11 20:50 | NUR ---
REC'D PATIENT FROM DIALYSIS VIA WHEELCHAIR. NO S/S OF DISTRESS. WILL CONTINUE TO MONITOR
[2018-04-11 21:30] VITALS: BP 200/122
--- NOTE | 2018-04-11 22:20 | NUR ---
PAGED EMPLOYMENT ASSISTANT SURVIVAL EQUIPMENT REPAIRER IN REGARDS TO PATIENT'S ELEVATED BP
--- NOTE | 2018-04-11 22:24 | NUR ---
SPOKE W/ RAJAN RUIZ WHO STATED TO GIVE THE PATIENT BP MEDS NOW FOR ELEVATED BP OF 200/122.
[2018-04-12] VITALS (8 sets, daily range): BP systolic 167–200; BP diastolic 110–131; Ht 180.3 cm; Wt 83.6 kg
[2018-04-12] MEDS ORDERED: CATAPRES0.2 MG PO (01:28)
--- NOTE | 2018-04-12 02:04 | NUR ---
PATIENT RESTING IN BED WITH EYES CLOSED AND NO S/S OF DISTRESS. WILL CONTINUE TO MONITOR.
--- NOTE | 2018-04-12 07:12 | NUR ---
NOTIFIED WORK AND FAMILY LIFE CONSULTANT THAT THE DOCTOR WANTS THE PATIENT TO BE MOVED TO MED 2 WHEN A BED IS AVAILABLE
--- NOTE | 2018-04-12 07:30 | NUR ---
PT AOX4 RESP EVEN AND NONLABORED PT DENIES NEEDS AT THIS TIME IV TO LEFT IJ PATENT AND INTACT AT THIS TIME SRX2 BED AT LOWEST SETTING CALL LIGHT WITHIN REACH WILL CONTINUE TO MONITOR
[2018-04-12 07:31] LABS: ANION GAP 21.5 mmol/L (8-16); CALCIUM 8.4 mg/dL (8.5-10.1); CARBON DIOXIDE 23.6 mmol/L (21.0-32.0); CREATININE - SERUM 12.1 mg/dL (0.6-1.3)
[2018-04-12 07:39] LABS: POTASSIUM - SERUM 4.1 mmol/L (3.5-5.1)
[2018-04-12 07:56] LABS: BASOPHILS 0.3 % (0-2); EOSINOPHILS 0.9 % (0-7); HEMATOCRIT 24.5 % (42.0-54.0); IMMATURE GRANULOCYTES 0.1 % (0-5); MCH 29.5 pg (26.0-34.0); MCHC 32.7 g/dL (31.0-37.0); MEAN PLATELET VOLUME 11.6 fL (7.4-10.4); MONOCYTES 5.6 % (2-11); NEUTROPHILS 83.1 % (40-80); PLATELET COUNT 212 10x3/uL (130-400); RBC 2.71 10x6/uL (4.20-6.10); RDW 15.9 % (11.5-14.5); WBC 6.9 10x3/uL (4.8-10.8)
[2018-04-12 07:57] LABS: MCV 90.4 fL (80.0-100.0)
--- NOTE | 2018-04-12 09:47 | MORECARE ---
CASE MANAGEMENT DISCHARGE SUMMARY PATIENT: JAKE GRACE UNIT: [id number] ADM DATE: 04/11/18 AGE: 38 : [birth year] SEX: M ROOM/BED: D.1207 AUTHOR: LIANA PADRON PHYSICIAN: REFERRING PHYSICIAN: DORA PERALTA MD DATE OF SERVICE: 04/12/18 Discharge Plan Patient Name: AJKE GRACE Facility: [facility]:[place] : 1980 Planned Disposition: Anticipated Discharge Date: Discharge Date: Expected LOS: Initial Reviewer: [email or web address] Initial Review Date: 04/11/2018 Generated: 04/12/18 10:47 am Comments DCP- Discharge Planning Updated by [email or web address]: Kamila Damian on 04/12/18 8:[address] Patient Name: JAKE GRACE Admission Status: ER Accout number: [id number] Admission Date: 04-11-2018 : 1980 Admission Diagnosis: Attending: Dora Peralta Current LOS: 1 Anticipated DC Date: Planned Disposition: Primary Insurance: MEDICARE A & B Discharge Planning Comments: CM MET WITH PATIENT ABOUT TRANSPORTATION TO DIALYSIS ON MWF. HE STATES HE COULD USE THE [facility] BUT DOESN'T HAVE THE MONEY FOR THE VAN. CM CALLED [facility] IN [place] AND THEY INFORMED ME IT IS 2 DOLLARS FOR THEM TO PICK HIM UP AND THEN 2 DOLLARS TO TAKE HIM BACK HOME. THEY STATE HE HAS USED THEM MANY TIMES AND PART OF THE TIME HE WILL NOT BE THERE WHEN THEY COME TO PICK HIM UP. FROM REVIEWING THE CHART, THE PATIENT IS VERY NONCOMPLIANT. WILL RECOMEND HE CALL THE [facility] ON THE BACK OF HIS MCR CARD AND SEE IF THEY CAN PROVIDE HIM TRANSPORTATION. CM WILL FOLLOW AND ASSIST NEEDED WITH DC PLANNING/NEEDS. Director Of Corporate Sales: Kamila Nati Patient Name: JAKE GRACE Page [phone] at 0947 All edits/amendments must be made on the electronic document DICTATION DATE: 04/12/1847 BORING MACHINE FEEDER: CHRISTIAN 04/12/18 0947 RPT#: [id number] DC DATE: STATUS: ADM IN [place] [id number] [place] [address] END OF REPORT
--- NOTE | 2018-04-12 19:10 | NUR ---
PATIENT IS RESTING IN HIS BED. DENIES ANY NEEDS. BED IS DOWN LOW AND CALL LIGHT IS IN REACH.
--- NOTE | 2018-04-13 04:00 | NUR ---
PATIENT IS SLEEPING. BED IS DOWN LOW WITH SIDE RAILS UP X2. CALL LIGHT IS IN REACH.
[2018-04-13 04:30] VITALS: BP 184/118
--- NOTE | 2018-04-13 04:30 | NUR ---
PT RESTING WITH EYES CLOSED, AROUSES TO SOFT VERBAL STIMULATION, VS AND WEIGHT OBTAINED, PT DENIES NEEDS OR PAIN AT THIS TIME
[2018-04-13 05:53] LABS: BASOPHILS 0.2 % (0-2); HEMATOCRIT 24.5 % (42.0-54.0); HEMOGLOBIN 7.9 g/dL (13.5-17.5); IMMATURE GRANULOCYTES 0.2 % (0-5); LYMPHOCYTES 8.6 % (15-50); MCH 29.4 pg (26.0-34.0); MCHC 32.2 g/dL (31.0-37.0); MCV 91.1 fL (80.0-100.0); MEAN PLATELET VOLUME 11.3 fL (7.4-10.4); MONOCYTES 7.2 % (2-11); NEUTROPHILS 81.8 % (40-80); PLATELET COUNT 184 10x3/uL (130-400); RBC 2.69 10x6/uL (4.20-6.10); RDW 15.9 % (11.5-14.5)
[2018-04-13 06:29] LABS: ANION GAP 24.2 mmol/L (8-16); CALCIUM 8.1 mg/dL (8.5-10.1); CARBON DIOXIDE 20.8 mmol/L (21.0-32.0); PHOSPHOROUS 8.6 mg/dL (2.5-4.9)
--- NOTE | 2018-04-13 08:30 | NUR ---
AWAKE AND ALERT. B/P= 199/124 PGLMN=[id number]. TO DIALYSIS UNIT PER BED.
[2018-04-13 09:50] VITALS: BP 198/129
--- NOTE | 2018-04-13 12:20 | NUR ---
RETURNED TO ROOM VIA BED. LUNCH SERVED.
--- NOTE | 2018-04-14 07:39 | DS ---
PATIENT:JAKE GRACE :[birth year] MEDICAL RECORD: [id number] DISCHARGE SUMMARY ADMISSION DATE: 04/11/18 DISCHARGE DATE: 04/13/18 HISTORY OF PRESENT ILLNESS: Mr. Grace is a 38-year-old black male with end-stage renal disease due to hypertension, known chronic drug abuse along with a very poor compliance only seen in dialysis on intermittent basis due to his compliance. He also misses doses of his medications. Appeared in the ER having missed dialysis since last week and was short of breath and hypertensive and admitted. HOSPITAL COURSE: The patient was placed back on his home medications. His drug screen is pending. His antihypertensive drugs were restarted. He underwent dialysis and transfusion. Despite his blood pressure continuing being elevated, he requested discharge, so we will discharge later today post-dialysis and transfusion if his blood pressure has come down to a reasonable number. He was otherwise stable and back to baseline. DISCHARGE DIAGNOSES: 1. End-stage renal disease, chronic dialysis. 2. Chronic hypertension with poor control due to medication noncompliance. 3. Chronic drug abuse. 4. Chronic anemia. 5. Severe accelerated hypertension. PLAN: The patient will be discharged today. We will follow up in [place] dialysis. His drug screen is pending. Case management has discussed with him about his dialysis transportation. I will follow up in the dialysis unit. DISCHARGE MEDICATIONS: Will be Loniten 5 mg b.i.d., Nephro-Layo 1 daily, Renagel 2.4 grams t.i.d., hydralazine 50 q.8 hours, clonidine 0.2 q.6 hours, labetalol 200 q.8 hours. TRANSINT:[id number] Voice Confirmation ID: [id number] DOCUMENT ID: [id number] ALE ESCAMILLA MD at 0739 CC: [id number] DICTATION DATE: 04/13/18710 BRICK PICKER: 04/13/18 0733 DIS IN 04/13/18 [facility] [address] [place] [address]
--- NOTE | 2018-04-14 15:27 | MORECARE ---
CASE MANAGEMENT DISCHARGE SUMMARY PATIENT: JAKE GRACE UNIT: [id number] ADM DATE: 04/11/18 AGE: 38 : [birth year] SEX: M ROOM/BED: D.1207 AUTHOR: LIANA PADRON PHYSICIAN: REFERRING PHYSICIAN: DORA PERALTA MD DATE OF SERVICE: 04/14/18 Discharge Plan Patient Name: JAKE GRACE Facility: [facility]:[place] : 1980 Planned Disposition: Anticipated Discharge Date: Discharge Date: 04/13/2018 Expected LOS: Initial Reviewer: [email or web address] Initial Review Date: 04/11/2018 Generated: 04/14/18 4:26 pm Comments DCP- Discharge Planning Updated by [email or web address]: Kamila Damian on 04/12/18 8:[address] Patient Name: JAKE GRACE Admission Status: ER Accout number: [id number] Admission Date: 04-11-2018 : 1980 Admission Diagnosis: Attending: Dora Peralta Current LOS: 1 Anticipated DC Date: Planned Disposition: Primary Insurance: MEDICARE A & B Discharge Planning Comments: CM MET WITH PATIENT ABOUT TRANSPORTATION TO DIALYSIS ON MWF. HE STATES HE COULD USE THE [facility] BUT DOESN'T HAVE THE MONEY FOR THE VAN. CM CALLED [facility] IN [place] AND THEY INFORMED ME IT IS 2 DOLLARS FOR THEM TO PICK HIM UP AND THEN 2 DOLLARS TO TAKE HIM BACK HOME. THEY STATE HE HAS USED THEM MANY TIMES AND PART OF THE TIME HE WILL NOT BE THERE WHEN THEY COME TO PICK HIM UP. FROM REVIEWING THE CHART, THE PATIENT IS VERY NONCOMPLIANT. WILL RECOMEND HE CALL THE [facility] ON THE BACK OF HIS MCR CARD AND SEE IF THEY CAN PROVIDE HIM TRANSPORTATION. CM WILL FOLLOW AND ASSIST NEEDED WITH DC PLANNING/NEEDS. Support Specialist: Kamila Damian Coverage Notice Reviewer: [id number] - Kamila Damian Notice Issued Date-Time: 04/12/2018 16:10 Notice Type: Medicare Outpatient Observation Notice Notice Delivered To: Patient Relationship to Patient: Self Technology Teacher Name: Delivery Method: HAND - Hand Delivered Lizzy Days: Prior Verbal Notification: Recipient Understood Notice: Yes Recipient Signature: Yes Med Rec Note Co-signed by Attending: Coverage Notice Comment: Last DP export: 04/12/18 8:47 a Patient Name: JAKE GRACE Page [phone] at 1527 All edits/amendments must be made on the electronic document DICTATION DATE: 04/14/181525 DAG SPRAYER: CHRISTIAN 04/14/181525 RPT#: [id number] DC DATE:04/13/18 STATUS: DIS IN [facility] [address] [place] [address] END OF REPORT
== END 2018-04-13 18:00 | disposition home or self-care (01) ==
LOC: D.ER 12:38 → D.EDHOLD 16:48 → D.M3 16:48 → OBSVTIME 16:49 → D.M3 17:42
PROVIDERS: Emergency Medicine; ADMIT Internal Medicine Nephrology
DX: E87.5 Hyperkalemia (principal); I12.0 Hypertensive chronic kidney disease with stage 5 chronic kidney disease or end stage renal disease; N18.6 End stage renal disease; Z99.2 Dependence on renal dialysis; Z91.15 Patient's noncompliance with renal dialysis; D63.1 Anemia in chronic kidney disease; E83.39 Other disorders of phosphorus metabolism